=== PATIENT | female | born 2000 | race Two or more races ===

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

== ENCOUNTER 2022-06-28 15:52 | Emergency (ER) | payer MEDICAID ==
[~2022-06-28] VITALS: Ht 154.9 cm; Wt 48.0 kg
[2022-06-28 16:10] VITALS: BP 127/79
[2022-06-28] MEDS ORDERED: FLUORESCEIN SOD OPTH TEST STRIP RIGHTEYE ONE (19:15)
[2022-06-28] MEDS ORDERED: ERY05OO OP (23:01)
== END 2022-06-28 19:56 | disposition home or self-care (01) ==
LOC: ER 15:52 → EDBD 15:52 → ER 19:56
DX: H57.13 Ocular pain, bilateral (principal)

== ENCOUNTER → 2023-12-06 | Outpatient (CLI) | payer MEDICAID ==
[~2023-12-06] MED LIST: ERY05OO OP
== END | disposition home or self-care (01) ==
LOC: Rad HDHVI 08:58
PROVIDERS: ATTEND Internal Medicine Cardiovascular Disease
DX: I34.0 Nonrheumatic mitral (valve) insufficiency (principal); I11.0 Hypertensive heart disease with heart failure; I50.33 Acute on chronic diastolic (congestive) heart failure
CPT/HCPCS: 93306